=== PATIENT | female | born 1980 | race Caucasian/White ===

== ENCOUNTER 2020-05-07 00:25 | Inpatient (IN) | payer OTHER ==
[2020-05-07] MEDS: OXYTOCIN 20 UNITS in 0.9% NS 20 UNIT/1,000 ML INFUS.BAG IV SCH ×2 (00:45→02:30)
[2020-05-07] MEDS ORDERED: METHYLERGONOVINE MALEATE 0.2 MG/1 ML AMP IM PRN (01:22)
[2020-05-07] MEDS ORDERED: WITCH HAZEL 50% (TUCKS) 40 PAD/JAR PAD TP PRN (01:22)
[2020-05-07] MEDS ORDERED: BENZOCAINE 28 GM HEMORRHOIDAL OINTMENT TP PRN (01:22)
[2020-05-07] MEDS ORDERED: BENZOCAINE 20% 57 GM BOTTLE TP PRN (01:22)
[2020-05-07] MEDS ORDERED: oxyCODONE HCL 5 MG TABLET PO PRN (01:22)
[2020-05-07] MEDS ORDERED: IBUPROFEN 600 MG TABLET (FP) PO PRN (01:22)
[2020-05-07] MEDS ORDERED: ACETAMINOPHEN 325 MG TABLET (FP) PO PRN (01:22)
[2020-05-07] MEDS ORDERED: BISACODYL 10 MG SUPP.RECT RC PRN (01:22)
[2020-05-07 01:34] LABS: BASO % 0.2 % (0-2.0); EOS % 0.4 % (0-4.5); HEMATOCRIT 38.7 % (32.4-45.2); LYMPH % 10.6 % (8-40); MCH 29.1 pg (25.7-33.7); MCHC 33.7 g/dl (32.0-36.0); MEAN CELL VOLUME 86.6 fl (80-96); MEAN PLT VOLUME 9.6 fl (7.5-11.1); MONO % 5.1 % (3.8-10.2); NEUT % 83.7 % (42.8-82.8); PLATELET COUNT 252 K/MM3 (134-434); RBC 4.47 M/mm3 (3.60-5.2); RDW 13.4 % (11.6-15.6); WHITE BLOOD COUNT 13.2 K/mm3 (4.0-10.0)
[2020-05-07 01:44] LABS: INR 0.92 (0.83-1.09); PROTHROMBIN TIME (PATIENT) 11.4 SEC (9.7-13.0)
[2020-05-07 02:05] LABS: POTASSIUM 4.4 mmol/L (3.5-5.1)
[2020-05-07 02:07] LABS: ALBUMIN 3.2 g/dl (3.4-5.0); BLOOD UREA NITROGEN 8.1 mg/dL (7-18); CALCIUM 9.7 mg/dL (8.5-10.1)
[2020-05-07 02:10] LABS: CREATININE 0.6 mg/dL (0.55-1.3)
[2020-05-07 02:12] LABS: BILIRUBIN,TOTAL 1.6 mg/dL (0.2-1); TOT PROT 7.1 g/dl (6.4-8.2)
[2020-05-07 02:25] VITALS: BMI 22.2
[2020-05-07 10:12] LABS: OPIATES, URI NEGATIVE ng/ml (CUTOFF=300); URINE BENZODIAZEPINES NEGATIVE ng/ml (CUTOFF=200)
[2020-05-07 10:13] LABS: PHENCYCLIDINE,URINE NEGATIVE ng/ml (CUTOFF=25)
[2020-05-07 10:28] LABS: METHADONE, UR NEGATIVE ng/ml (CUTOFF=300); URINE AMPHETAMINES NEGATIVE ng/ml (CUTOFF=500); URINE BARBITURATES NEGATIVE ng/ml (CUTOFF=200)
[2020-05-07 10:30] LABS: COCAINE, UR POSITIVE ng/ml (CUTOFF=300)
[2020-05-07] MEDS: PRENATAL VITAMINS W/ FOLIC ACID TABLET (FP) PO SCH (10:35)
[2020-05-08] MEDS: metFORMIN HCL 500 MG TABLET (FP) PO SCH ×2 (06:23→17:30)
[2020-05-08] MEDS ORDERED: INSULIN SLIDING SCALE (NOVOLOG) 1 VIAL SQ ONE (08:33)
[2020-05-08] MEDS: INSULIN (NOVOLOG) ASPART 100 UNITS/ML 10ML VIAL SQ SCH ×3 (08:37→17:33)
[2020-05-08 08:57] LABS: BASO % 0.3 % (0-2.0); EOS % 1.3 % (0-4.5); HEMATOCRIT 39.2 % (32.4-45.2); HEMOGLOBIN 13.4 GM/dL (10.7-15.3); LYMPH % 24.2 % (8-40); MCH 29.6 pg (25.7-33.7); MCHC 34.1 g/dl (32.0-36.0); MEAN CELL VOLUME 86.8 fl (80-96); MEAN PLT VOLUME 8.8 fl (7.5-11.1); MONO % 6.1 % (3.8-10.2); NEUT % 68.1 % (42.8-82.8); PLATELET COUNT 230 K/MM3 (134-434); RBC 4.51 M/mm3 (3.60-5.2); RDW 13.5 % (11.6-15.6); WHITE BLOOD COUNT 9.8 K/mm3 (4.0-10.0)
[2020-05-08] MEDS: PRENATAL VITAMINS W/ FOLIC ACID TABLET (FP) PO SCH (11:41)
[2020-05-08] MEDS ORDERED: SENNOSIDES/DOCUSATE COMBO (SENNA PLUS) TABLET (UD) PO PRN (22:00)
[2020-05-09] MEDS: metFORMIN HCL 500 MG TABLET (FP) PO SCH (06:42)
[2020-05-09] MEDS: INSULIN (NOVOLOG) ASPART 100 UNITS/ML 10ML VIAL SQ SCH (08:34)
[2020-05-09 10:30] VITALS: BP 120/82; PULSE 98; TEMP 97.6
[2020-05-09] MEDS: PRENATAL VITAMINS W/ FOLIC ACID TABLET (FP) PO SCH (10:32)
== END 2020-05-09 10:10 | disposition home or self-care (01) | DRG 560 ==
LOC: JLDR 00:25 → J3W 03:09
PROVIDERS: ADMIT Obstetrics & Gynecology; ATTEND Obstetrics & Gynecology
PROC: 0HQ9XZZ Repair Perineum Skin, External Approach (ICD-10-PCS; principal; 2020-05-07)
DX: Z39.0 Encounter for care and examination of mother immediately after delivery (principal); O70.0 First degree perineal laceration during delivery; O24.410 Gestational diabetes mellitus in pregnancy, diet controlled; O99.324 Drug use complicating childbirth; F14.10 Cocaine abuse, uncomplicated; Z3A.39 39 weeks gestation of pregnancy; Z37.0 Single live birth
CPT/HCPCS: 36415; 59409; 80053; 80307; 82962; 85025; 85610; 85730; 86762; 86780; 86850; 86900; 86901; 87340; 87389; C9803; U0003